=== PATIENT | female | born 1950 | race Caucasian/White ===

== ENCOUNTER → 2017-05-05 | Outpatient (CLI) | payer MEDICARE, OTHER | END | disposition home or self-care (01) | LOC: CDC 10:59 | DX: Z01.810 Encounter for preprocedural cardiovascular examination (principal); M25.561 Pain in right knee; M17.11 Unilateral primary osteoarthritis, right knee | CPT/HCPCS: 93000 ==

== ENCOUNTER 2017-05-18 22:09 | Inpatient (IN) | payer OTHER ==
[~2017-05-18] VITALS: Ht 172.7 cm; Wt 84.6 kg
[~2017-05-18 22:09] MED LIST: ADULT ASPIRIN R81 MG PO; ARTIFICIAL TEAR15 M1 BOTH EYES; CELLCEPT500 MG PO; EFFEXOR37.5 MG PO; FEOSOL325 MG PO; FOSAMAX70 MG PO; LODINE400 MG PO; NEURONTIN300 MG PO; PROTONIX40 MG PO; ULTRAM50 MG PO; ZESTORETIC 20-1 EAC1 PO
[2017-05-19 10:01] VITALS: BP 106/64
[2017-05-19 20:02] VITALS: BP 110/57
[2017-05-20 00:18] VITALS: BP 94/54
[2017-05-20 04:12] VITALS: BP 101/57
[2017-05-20 06:15] LABS: CHLORIDE 102 MEQ/L (99-109); CREATININE 0.8 MG/DL (0.6-1.3); GFR ESTIMATE (CALCULATED) > 59 mL/min/; GLUCOSE 135 mg/dL (70-99); POTASSIUM 3.8 MEQ/L (3.7-5.4); SODIUM 137 MEQ/L (136-147); UREA NITROGEN (BUN) 20 mg/dL (9-23)
[2017-05-20 08:00] VITALS: BP 106/55
[2017-05-20 16:31] VITALS: BP 119/58
[2017-05-20 18:01] LABS: HEMATOCRIT 28.7 % (36.0-46.0); MCV 88.3 FL (83-99)
[2017-05-20 18:07] LABS: HEMOGLOBIN 9.5 G/DL (11.9-15.5)
[2017-05-20 20:05] VITALS: BP 91/50
[2017-05-21 00:05] VITALS: BP 113/69
[2017-05-21 04:10] VITALS: BP 103/55
[2017-05-21 09:16] VITALS: BP 103/51
[2017-05-21 14:53] VITALS: BP 126/59
[2017-05-21 20:47] VITALS: BP 136/59
[2017-05-21 23:53] VITALS: BP 133/73
[2017-05-22 08:23] VITALS: BP 117/58
[2017-05-22] MEDS ORDERED: ELIQUIS2.5 MG PO (08:54)
[2017-05-22] MEDS ORDERED: HYDROCODON-ACE1 EAC7 PO (08:54)
[2017-05-22 11:36] VITALS: BP 125/56
== END 2017-05-22 15:37 | disposition home or self-care (01) | DRG 470 ==
LOC: ENRESERV 22:09 → 2SOUTH 05-19 08:20 → 3WEST 05-19 19:50 → ENRESERV 05-21 07:28 → 3EAST 05-21 17:21 → ENPENDDIS 05-22 → 3EAST 05-22 15:37
PROVIDERS: Orthopaedic Surgery
PROC: 0SRC0J9 Replacement of Right Knee Joint with Synthetic Substitute, Cemented, Open Approach (ICD-10-PCS; principal; 2017-05-19)
DX: M17.11 Unilateral primary osteoarthritis, right knee (principal); I10 Essential (primary) hypertension; G47.33 Obstructive sleep apnea (adult) (pediatric); K21.9 Gastro-esophageal reflux disease without esophagitis; E55.9 Vitamin D deficiency, unspecified; D86.9 Sarcoidosis, unspecified; M81.0 Age-related osteoporosis without current pathological fracture
CPT/HCPCS: 71045; 73560; 80048; 85014; 85018; C1713; J0131; J0690; J1100; J1170; J1885; J2250; J2405; J3010; J7030; J7050; S0020

== ENCOUNTER 2017-10-13 09:24 | Inpatient (IN) | payer OTHER ==
[~2017-10-13] VITALS: Ht 162.6 cm; Wt 83.4 kg
[~2017-10-13 09:24] MED LIST changes: -EFFEXOR37.5 MG PO; +ELIQUIS2.5 MG PO; +HYDROCODON-ACE1 EAC7 PO; +LISINOPRIL20 MG PO; +VENLAFAXINE HCL75 M3 PO; -ZESTORETIC 20-1 EAC1 PO
[2017-10-13 09:37] LABS: BASOPHIL (%) 0.8 % (0-1); BASOPHIL COUNT 0.1 K/uL (0-0.1); EOSINOPHIL (%) 2.3 % (0-5); EOSINOPHIL COUNT 0.2 K/uL (0-0.3); HEMATOCRIT 37.4 % (36.0-46.0); HEMOGLOBIN 12.5 G/DL (11.9-15.5); IMMATURE GRANULOCYTE (%) 0.3 % (0.0-0.7); LYMPHOCYTE (%) 19.8 % (15-42); LYMPHOCYTE COUNT 1.5 K/uL (1.0-2.8); MCHC 33.4 G/DL (30.0-36.0); MCV 83.9 FL (83-99); MONOCYTE COUNT 0.5 K/uL (0-0.8); NEUTROPHIL (%) 69.8 % (45-76); NEUTROPHIL COUNT 5.2 K/uL (1.8-6.4); PLATELET COUNT 389 K/uL (156-360); RBC DIS.WIDTH-CV 17.2 % (11.8-14.6); RBC DIS.WIDTH-SD 53.2 % (39-53); RED BLOOD COUNT 4.46 M/uL (3.80-5.20); WHITE BLOOD COUNT 7.4 K/uL (4.1-10.2)
[2017-10-13 09:46] LABS: PTT 32.1 SEC (25-37)
[2017-10-13 09:48] LABS: AMYLASE 26 IU/L (1-118); CHLORIDE 106 mEq/L (99-109); POTASSIUM 4.3 mEq/L (3.7-5.4); SODIUM 141 mEq/L (136-147)
[2017-10-13 09:50] LABS: GLUCOSE 98 mg/dL (70-99)
[2017-10-13 09:53] LABS: CREATININE 0.8 mg/dL (0.6-1.3); GFR ESTIMATE (CALCULATED) > 59 mL/min/; SERUM ETHYL ALCOHOL < 10 mg/dL
[2017-10-13 09:54] LABS: UREA NITROGEN (BUN) 16 mg/dL (9-23)
[2017-10-13 09:56] LABS: LIPASE 10 U/L (1.0-51.0)
[2017-10-13 09:58] LABS: TROP-I INTERPRETATION NEGATIVE; TROPONIN-I < 0.01 ng/mL (0.0-0.30)
[2017-10-13 10:52] LABS: ACETAMINOPHEN (TYLENOL) < 10 mcg/mL (10-30); SALICYLATE < 5.0 MG/DL (15-30)
[2017-10-13 11:43] LABS: APPEARANCE CLEAR ((CLEAR)); BILIRUBIN NEGATIVE; BLOOD NEGATIVE; COLOR YELLOW ((YELLOW)); GLUCOSE (STRIP) NEGATIVE; KETONES NEGATIVE; LEUKOCYTES NEGATIVE; NITRITE NEGATIVE; PROTEIN (STRIP) NEGATIVE; SPECIFIC GRAVITY 1.025 (1.000-1.030); UCUL ADDED? NO
[2017-10-13 11:55] LABS: AMPHETAMINE NEGATIVE (500 ng/mL); BARBITURATES NEGATIVE (200 ng/mL); BENZODIAZEPINES PRESUMPTIVE POSITIVE (150 ng/mL); BUPRENORPHINE NEGATIVE (10 ng/mL); COCAINE NEGATIVE (150 ng/mL); METHADONE NEGATIVE (200 ng/mL); METHAMPHETAMINE NEGATIVE (500 ng/mL); OPIATES (MORPHINE) NEGATIVE (100 ng/mL); OXYCODONE NEGATIVE (100 ng/mL); PHENCYCLIDINE NEGATIVE (25 ng/mL); PROPOXYPHENE NEGATIVE (300 ng/mL); THC CANNABINOIDS NEGATIVE (50 ng/mL); TRICYCLIC ANTIDEPRESSANTS NEGATIVE (300 ng/mL)
[2017-10-13 11:56] LABS: SITE RR
[2017-10-13 11:57] LABS: BASE EXCESS 2.2 mEq/L (-3 to +3); BICARBONATE 25.1 mEq/L (22-26); COMMENTS - BLOOD GASES NAC+; DEVICE 980; FI02 100 %; MECHANICAL RATE 16 resp/min; METHEMOGLOBIN 0.9 % (0-1.5); MODE AC; PCO2 33 mm Hg (35-45); PEEP 5 CM/H20; PO2 392 mm Hg (80-100); TOTAL RESP RATE 16 resp/min; pH 7.49 (7.35-7.45)
[2017-10-13 12:29] LABS: BENZODIAZEPINES, URINE SCREEN POSITIVE (200 ng/mL)
[2017-10-13] MEDS ORDERED: DICLOFENAC SODI75 MG PO (12:59)
[2017-10-13] MEDS ORDERED: TRAMADOL HCL50 MG PO (13:01)
[2017-10-13 14:50] VITALS: BP 209/107
[2017-10-13 15:00] VITALS: BP 209/107
[2017-10-13 15:30] VITALS: BP 173/95
[2017-10-13 16:00] VITALS: BP 143/79
[2017-10-13 17:00] VITALS: BP 151/80
[2017-10-13 18:00] VITALS: BP 146/74
[2017-10-14] VITALS (7 sets, daily range): BP systolic 116–154; BP diastolic 60–95
[2017-10-15 04:34] VITALS: BP 150/67
[2017-10-15 09:20] VITALS: BP 132/61
[2017-10-15 13:22] VITALS: BP 145/71
[2017-10-15 13:57] LABS: APPEARANCE CLEAR/COLORLESS; CSF TUBE NUMBER TUBE #4; RED CELL COUNT 3 /MM^3 (0-1); WHITE CELL COUNT 37 /MM^3 (0-5)
[2017-10-15 14:07] LABS: CSF PROTEIN 117 mg/dL (15-45)
[2017-10-15 14:08] LABS: CSF EOSINOPHILS 0 % (0-25); MONONUCLEAR WBC'S 100 % (50-90); POLYNUCLEAR WBC'S 0 % (0-3)
[2017-10-15 15:12] LABS: GLUCOSE, CSF 100 mg/dL (40-80)
[2017-10-15 15:42] VITALS: BP 143/66
[2017-10-15 19:31] VITALS: BP 158/71
[2017-10-15 22:22] VITALS: BP 179/82
[2017-10-16 03:55] VITALS: BP 154/81
[2017-10-16 06:54] LABS: CHLORIDE 106 MEQ/L (99-109); CREATININE 0.7 MG/DL (0.6-1.3); GFR ESTIMATE (CALCULATED) > 59 mL/min/; POTASSIUM 3.8 MEQ/L (3.7-5.4); SODIUM 140 MEQ/L (136-147); UREA NITROGEN (BUN) 24 mg/dL (9-23)
[2017-10-16 06:55] LABS: GLUCOSE 154 mg/dL (70-99)
[2017-10-16 07:10] VITALS: BP 133/68
[2017-10-16 11:09] VITALS: BP 154/71
[2017-10-16 11:46] LABS: HIV-1/2 AB/AG COMBO Nonreactive
[2017-10-16 15:10] VITALS: BP 144/67
[2017-10-16 19:44] VITALS: BP 174/77
[2017-10-16 23:35] VITALS: BP 166/74
[2017-10-17 03:33] VITALS: BP 154/76
[2017-10-17 07:57] VITALS: BP 151/75
[2017-10-17] MEDS ORDERED: PREDNISONE10 MG PO (09:42)
[2017-10-17] MEDS ORDERED: ATORVASTATIN CA40 MG PO (09:46)
[2017-10-17] MEDS ORDERED: ADULT ASPIRIN R81 MG PO (09:47)
[2017-10-17 11:26] VITALS: BP 165/72
[2017-10-17 15:52] VITALS: BP 180/85
[2017-10-18 21:57] LABS: Cytomegalovirus IgG Antibody+ >10.00 U/mL (<0.60); Cytomegalovirus IgM Antibody+ <30.00 AU/mL (<30.00); TOXOPLASMA IgM (ACUTE ONLY)+ <8.00 AU/mL (<8.00)
[2017-10-18 22:09] LABS: HSV CSF Spec Source CSF (())
[2017-10-20] MEDS ORDERED: EFFEXOR75 MG PO (11:23)
[2017-10-20] MEDS ORDERED: ASPIR 8181 M1 PO (11:25)
[2017-10-20 11:31] LABS: Varicella IgM <=0.90 (<=0.90)
[2017-10-20] MEDS ORDERED: LIPITOR40 MG PO (12:20)
[2017-10-20] MEDS ORDERED: VOLTAREN75 MG PO (12:21)
[2017-10-20] MEDS ORDERED: ULTRAM50 MG PO (12:21)
[2017-10-20] MEDS ORDERED: PREDNISONE1 MG PO (12:23)
[2017-10-20] MEDS ORDERED: FOLIC ACID0.4 MG PO (14:56)
[2017-10-20] MEDS ORDERED: IRON325 M1 PO (14:56)
[2017-10-20] MEDS ORDERED: VITAMIN B12 PO (14:57)
== END 2017-10-17 17:15 | disposition home or self-care (01) | DRG 208 ==
LOC: EME 09:24 → 4EAST 12:13 → EDOF 12:13 → ENRESERV 12:16 → 4WEST 14:31 → ENRESERV 23:13 → CANRESERV 23:39 → ENRESERV 10-14 00:31 → 4EAST 10-14 00:31 → ENRESERVTM 10-15 20:41 → ENRESERV 10-15 20:43 → 5SOUTH 10-15 22:09
PROVIDERS: Emergency Medicine; Family Medicine; Internal Medicine Infectious Disease; Specialist
DX: D86.89 Sarcoidosis of other sites (principal); G93.6 Cerebral edema; M48.02 Spinal stenosis, cervical region; M48.061 Spinal stenosis, lumbar region without neurogenic claudication; G40.909 Epilepsy, unspecified, not intractable, without status epilepticus; R26.9 Unspecified abnormalities of gait and mobility; I10 Essential (primary) hypertension; G89.29 Other chronic pain; M54.5 Low back pain; M25.50 Pain in unspecified joint; R11.2 Nausea with vomiting, unspecified; H30.90 Unspecified chorioretinal inflammation, unspecified eye; M19.90 Unspecified osteoarthritis, unspecified site; Z87.891 Personal history of nicotine dependence; Z86.73 Personal history of transient ischemic attack (TIA), and cerebral infarction without residual deficits; Z96.651 Presence of right artificial knee joint
CPT/HCPCS: 36600; 62270; 70450; 70496; 70498; 70553; 71045; 71250; 74176; 77003; 80048; 81003; 82150; 82164 90; 82607; 82803; 82945; 83690; 84157; 84484; 84999; 85025; 85610; 85730; 86611 90; 86644 90; 86645 90; 86664; 86665; 86778 90; 86787 90; 86850; 86900; 86901; 87070; 87102; 87116; 87205; 87206; 87389; 87497 90; 87529 90; 87641; 87899; 89051; 93005; 94002; 94760; 95819; 97530 GO; 99281; 99285; G0480; J1630; J2060; J2250; J2704; J2930; J3010; J7040; J7050; J7517; S0028

== ENCOUNTER 2017-10-21 22:22 | Inpatient (IN) | payer OTHER ==
[~2017-10-21] VITALS: Ht 172.7 cm; Wt 85.1 kg
[~2017-10-21 22:22] MED LIST changes: +ASPIR 8181 M1 PO; +ATORVASTATIN CA40 MG PO; +DICLOFENAC SODI75 MG PO; +EFFEXOR75 MG PO; +FOLIC ACID0.4 MG PO; +IRON325 M1 PO; +LIPITOR40 MG PO; +PREDNISONE1 MG PO; +PREDNISONE10 MG PO; +TRAMADOL HCL50 MG PO; +VITAMIN B12 PO; +VOLTAREN75 MG PO
[2017-10-22 06:38] VITALS: BP 139/70
[2017-10-22] MEDS ORDERED: LORAZEPAM0.5 MG PO (10:45)
[2017-10-22] MEDS ORDERED: MEDROL DOSEPAK4 MG PO ×2 (10:45→10:54)
[2017-10-22 20:30] VITALS: BP 161/75
[2017-10-22 21:02] VITALS: BP 161/75
[2017-10-22 23:35] VITALS: BP 158/72
[2017-10-23 03:40] VITALS: BP 166/74
[2017-10-23 07:22] VITALS: BP 176/77
== END 2017-10-23 09:25 | disposition home or self-care (01) | DRG 983 ==
LOC: ENRESERV 22:22 → 3EAST 10-22 05:29 → 2SOUTH 10-22 05:29 → ENRESERV 10-22 18:58 → 3EAST 10-22 20:20
PROC: 00B20ZX Excision of Dura Mater, Open Approach, Diagnostic (ICD-10-PCS; principal; 2017-10-22)
DX: D86.89 Sarcoidosis of other sites (principal); I10 Essential (primary) hypertension; G40.909 Epilepsy, unspecified, not intractable, without status epilepticus; K21.9 Gastro-esophageal reflux disease without esophagitis; G89.29 Other chronic pain; Z96.651 Presence of right artificial knee joint; Z87.891 Personal history of nicotine dependence; Z79.82 Long term (current) use of aspirin
CPT/HCPCS: 70450; 77021; 88307; 88312; C1713; J0330; J0690; J1100; J1170; J1720; J2250; J2405; J2710; J3010; J3480; J7517; J7643; Q0175